=== PATIENT | female | born 1940 | race Asian ===

== ENCOUNTER 2018-12-25 17:42 | Emergency (ER) | payer MEDICARE, OTHER ==
[~2018-12-25] VITALS: Ht 160 cm; Wt 48.5 kg
[2018-12-25 18:07] VITALS: BP 146/81
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
[2018-12-25] MEDS ORDERED: IBUPROFEN600 MG ORAL (20:01)
[2018-12-25 20:15] VITALS: BP 137/79
--- NOTE | 2018-12-25 20:15 | NUR ---
ER DISCHARGE NOTE: Patient is cleared to be discharged per ERMD, pt is aox4, on room air, with stable vital signs. pt was given dc and prescription instructions, pt was able to verbalize understanding, pt id band removed without complications. pt is able to ambulate with steady gait. pt took all belongings.
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
== END 2018-12-25 20:15 | disposition home or self-care (01) ==
LOC: EMR 18:51
DX: S20.219A Contusion of unspecified front wall of thorax, initial encounter (principal); V43.52XA Car driver injured in collision with other type car in traffic accident, initial encounter; Y92.410 Unspecified street and highway as the place of occurrence of the external cause; I10 Essential (primary) hypertension
CPT/HCPCS: 71250; 99284